=== PATIENT | male | born 1970 | race African-American/Black ===

== ENCOUNTER 2021-03-16 16:10 | Inpatient (IN) | payer MEDICAID ==
[~2021-03-16] VITALS: Ht 170.2 cm; Wt 120.6 kg
[~2021-03-16 16:10] MED LIST: AMOX1TAB15 PO; CLIN300C3 PO; INSLAN SQ; INSU100V SQ; LURA40TA2 PO; METF-845 PO; MULT-723 PO; VANC1IV IV
[2021-03-16] MEDS ORDERED: FUROSEMIDE 40 MG/4 ML VIAL IVP ONE (17:45)
[2021-03-16 18:06] LABS: BASOPHILS % (AUTO) 1.2 % (0.0-2.0); HEMATOCRIT 30.3 % (41-53); HEMOGLOBIN 9.6 g/dL (13.5-17.5); LYMPHOCYTES # (AUTO) 0.8 K/uL (1.0-4.8); MEAN CORPUSCULAR HEMOGLOBIN 27.6 pg (26.0-34.0); MEAN CORPUSCULAR HGB CONC 31.8 G/dL (31.0-37.0); MEAN CORPUSCULAR VOLUME 87 fL (80-100); MONOCYTES # (AUTO) 0.8 K/uL (0.1-1.0); MONOCYTES % (AUTO) 8.4 % (2.0-9.0); NEUTROPHILS # (AUTO) 7.3 K/uL (1.8-7.7); NEUTROPHILS % (AUTO) 80.4 % (40.0-70.0); PLATELET COUNT (AUTO) 357 K/uL (150-450); RED BLOOD CELL COUNT(AUTO) 3.49 MIL/uL (4.50-5.90); RED CELL DISTRIBUTION WIDTH 19.9 % (11.5-14.5)
[2021-03-16] MEDS ORDERED: NITROGLYCERIN 2% (1 GM=INCH) PACKET TP ONE (18:15)
[2021-03-16] MEDS ORDERED: MORPHINE SULFATE 4 MG/ML SYRINGE IVP ONE (18:15)
[2021-03-16] MEDS ORDERED: ASPIRIN 81 MG CHEWABLE TABLET PO ONE (18:15)
[2021-03-16] MEDS ORDERED: ONDANSETRON HCL 4 MG/2 ML VIAL IVP ONE (18:15)
[2021-03-16 18:36] LABS: CALCIUM, TOTAL 7.9 mg/dL (8.8-10.5); CREATININE 1.58 mg/dL (0.60-1.30); POTASSIUM 5.3 mmol/L (3.5-5.1)
[2021-03-16 18:50] LABS: ALBUMIN 1.6 g/dL (3.4-5.0); BILIRUBIN,TOTAL 0.5 mg/dL (0.1-1.0); TOTAL PROTEIN, SERUM 6.6 g/dL (6.4-8.2)
[2021-03-16] MEDS ORDERED: 0.9% SODIUM CHLORIDE 10 ML SYRINGE IVP PRN (19:45)
[2021-03-16 20:40] LABS: COVID AG,FIA SOURCE NASOPHARYNGEAL
[2021-03-16 20:45] LABS: FREE T4 (FREE THYROXINE) 1.09 ng/dL (0.76-1.46); THYROID STIMULATING HORMONE 2.63 uIU/mL (0.36-3.74)
[2021-03-16 22:56] LABS: GLUCOSE,POINT OF CARE 141 MG/DL (70-110)
[2021-03-16 23:29] VITALS: BP 128/80
[2021-03-17] MEDS ORDERED: INFLUENZA VIRUS VACCINE QVS 2021-22 (6MO+)/PF 60 MCG/0.5 ML SYRINGE IM. ONE (00:45)
[2021-03-17 04:08] VITALS: BP 125/75
[2021-03-17 06:38] LABS: GLUCOMETER DEV NAME(LOC) 5N.3; GLUCOSE,POINT OF CARE 198 MG/DL (70-110)
[2021-03-17 07:18] LABS: BASOPHILS % (AUTO) 1.6 % (0.0-2.0); EOSINOPHILS % (AUTO) 0.3 % (1.0-6.0); HEMATOCRIT 33.1 % (41-53); HEMOGLOBIN 10.4 g/dL (13.5-17.5); LYMPHOCYTES # (AUTO) 0.7 K/uL (1.0-4.8); LYMPHOCYTES % (AUTO) 8.6 % (22.0-44.0); MEAN CORPUSCULAR HEMOGLOBIN 27.8 pg (26.0-34.0); MEAN CORPUSCULAR HGB CONC 31.5 G/dL (31.0-37.0); MEAN CORPUSCULAR VOLUME 88 fL (80-100); MONOCYTES # (AUTO) 0.6 K/uL (0.1-1.0); MONOCYTES % (AUTO) 7.5 % (2.0-9.0); NEUTROPHILS # (AUTO) 6.7 K/uL (1.8-7.7); PLATELET COUNT (AUTO) 382 K/uL (150-450); RED BLOOD CELL COUNT(AUTO) 3.75 MIL/uL (4.50-5.90); RED CELL DISTRIBUTION WIDTH 19.8 % (11.5-14.5)
[2021-03-17 07:56] LABS: ALBUMIN 1.7 g/dL (3.4-5.0); BILIRUBIN,TOTAL 0.5 mg/dL (0.1-1.0); CALCIUM, TOTAL 7.9 mg/dL (8.8-10.5); CREATININE 1.79 mg/dL (0.60-1.30); TOTAL PROTEIN, SERUM 7.4 g/dL (6.4-8.2)
[2021-03-17 08:01] VITALS: BP 147/91
[2021-03-17 08:03] LABS: POTASSIUM 6.2 mmol/L (3.5-5.1)
[2021-03-17] MEDS ORDERED: DEXTROSE 50%-WATER 25 GM/50 ML SYRINGE IVP ONE ×2 (08:15→19:45)
[2021-03-17] MEDS ORDERED: SODIUM POLYSTYRENE SULFONATE 15 GM/60 ML SUSPENSION BOTTLE PO ONE ×2 (08:15→19:45)
[2021-03-17] MEDS ORDERED: INSULIN REGULAR, HUMAN 100 UNITS/ML IVP ONE ×2 (08:15→19:45)
[2021-03-17] MEDS ORDERED: ZOLPIDEM TARTRATE 5 MG TABLET PO PRN (09:30)
[2021-03-17] MEDS ORDERED: MAGNESIUM HYDROXIDE SUSPENSION 30 ML UDCUP PO PRN (09:30)
[2021-03-17] MEDS ORDERED: ACETAMINOPHEN 325 MG TABLET PO PRN (09:30)
[2021-03-17] MEDS ORDERED: ONDANSETRON HCL 4 MG/2 ML VIAL IVP PRN (09:30)
[2021-03-17] MEDS ORDERED: BISACODYL 10 MG RECTAL RECTAL SUPPOSITORY PR PRN (09:30)
[2021-03-17] MEDS ORDERED: IPRATROPIUM BROMIDE 0.5 MG/2.5 ML NEB SOLUTION NEB PRN (09:30)
[2021-03-17] MEDS ORDERED: ALBUTEROL SULFATE 2.5 MG/0.5 ML NEB SOLUTION NEB PRN (09:30)
[2021-03-17 11:33] VITALS: BP 159/113
[2021-03-17] MEDS: HEPARIN SODIUM,PORCINE 5,000 UNITS/ML VIAL SQ SCH ×2 (15:07→23:48)
[2021-03-17 15:32] VITALS: BP 154/84
[2021-03-17 19:55] VITALS: BP 146/89
[2021-03-17] MEDS: DOCUSATE SODIUM 100 MG CAPSULE PO SCH (20:27)
[2021-03-17] MEDS: INSULIN GLARGINE,HUM.REC.ANLOG 100 UNITS/ML SQ SCH (20:35)
[2021-03-17 23:46] VITALS: BP 155/94
[2021-03-18 01:46] LABS: GLUCOMETER DEV NAME(LOC) 5N.1C; GLUCOSE,POINT OF CARE 140 MG/DL (70-110)
[2021-03-18 03:56] VITALS: BP 152/93
[2021-03-18 07:25] VITALS: BP 162/109
[2021-03-18 07:56] LABS: GLUCOMETER DEV NAME(LOC) 5N.1C; GLUCOSE,POINT OF CARE 77 MG/DL (70-110)
[2021-03-18] MEDS: HEPARIN SODIUM,PORCINE 5,000 UNITS/ML VIAL SQ SCH ×2 (08:00→15:02)
[2021-03-18] MEDS: LURASIDONE HCL 40 MG TABLET PO SCH (08:00)
[2021-03-18] MEDS: DOCUSATE SODIUM 100 MG CAPSULE PO SCH ×2 (08:06→20:06)
[2021-03-18] MEDS: MULTIVITAMINS WITH IRON TABLET PO SCH (08:14)
[2021-03-18] MEDS: INSULIN GLARGINE,HUM.REC.ANLOG 100 UNITS/ML SQ SCH ×2 (08:51→20:06)
[2021-03-18] MEDS: FUROSEMIDE 40 MG/4 ML VIAL IVP SCH ×2 (09:13→20:06)
[2021-03-18 11:04] VITALS: BP 161/110
[2021-03-18] MEDS: AmLODIPine BESYLATE 5 MG TABLET PO SCH (11:04)
[2021-03-18] MEDS ORDERED: DEXTROSE 50%-WATER 25 GM/50 ML SYRINGE IVP PRN (11:15)
[2021-03-18] MEDS: ASPIRIN 81 MG CHEWABLE TABLET PO SCH (12:09)
[2021-03-18 13:37] LABS: APPEARANCE,URINE CLEAR (CLEAR); BILIRUBIN,URINE NEGATIVE (NEGATIVE); GLUCOSE, URINE (UA) NEGATIVE (NEGATIVE); KETONES,URINE NEGATIVE (NEGATIVE); LEUKOCYTE ESTERASE ,URINE NEGATIVE (NEGATIVE); NITRATE,URINE NEGATIVE (NEGATIVE); PROTEIN,URINE SEE CONFIRM (NEGATIVE); UROBILINOGEN,URINE 0.2 mg/dL (<=1.0)
[2021-03-18 13:45] LABS: AMPHET/METH SCREEN,URINE NEGATIVE (NEGATIVE); BARBITURATE SCREEN, URINE NEGATIVE (NEGATIVE); BENZODIAZEPINES SCREEN,URINE NEGATIVE (NEGATIVE); CANNABINOID SCREEN,URINE NEGATIVE (NEGATIVE); COCAINE SCREEN,URINE NEGATIVE (NEGATIVE); METHADONE SCREEN, URINE NEGATIVE (NEGATIVE); OPIATE SCREEN,URINE NEGATIVE (NEGATIVE); PROTEIN,URINE RANDOM 98 mg/dL (0-11.9)
[2021-03-18 13:48] LABS: PHENCYCLIDINE SCREEN,URINE NEGATIVE (NEGATIVE)
[2021-03-18 13:53] LABS: BACTERIA,URINE None Seen /HPF (None Seen); OCCULT BLOOD,URINE SMALL (NEGATIVE); WBC,URINE None Seen /HPF (0-5)
[2021-03-18 13:54] LABS: SULFOSALICYLIC ACID,URINE Trace (Negative)
[2021-03-18 14:05] LABS: CREATININE,URINE RANDOM < 5.0 mg/dL (30.0-125.0)
[2021-03-18 15:38] VITALS: BP 157/97
[2021-03-18 18:01] LABS: GLUCOMETER DEV NAME(LOC) 5N.1C; GLUCOSE,POINT OF CARE 84 MG/DL (70-110)
[2021-03-18 18:01] LABS: GLUCOMETER DEV NAME(LOC) 5N.1C; GLUCOSE,POINT OF CARE 92 MG/DL (70-110)
[2021-03-18 19:56] VITALS: BP 163/90
[2021-03-18 23:45] VITALS: BP 160/107
[2021-03-19 04:58] VITALS: BP 150/87
[2021-03-19] MEDS: INSULIN LISPRO 100 UNITS/ML SQ PRN ×2 (05:34→11:49)
[2021-03-19 06:42] LABS: GLUCOMETER DEV NAME(LOC) 5S.1; GLUCOSE,POINT OF CARE 129 MG/DL (70-110)
[2021-03-19 07:44] VITALS: BP 145/78
[2021-03-19] MEDS: HEPARIN SODIUM,PORCINE 5,000 UNITS/ML VIAL SQ SCH ×5 (08:00→23:24)
[2021-03-19] MEDS: MULTIVITAMINS WITH IRON TABLET PO SCH (08:12)
[2021-03-19] MEDS: LURASIDONE HCL 40 MG TABLET PO SCH (08:12)
[2021-03-19] MEDS: AmLODIPine BESYLATE 5 MG TABLET PO SCH (08:12)
[2021-03-19] MEDS: ASPIRIN 81 MG CHEWABLE TABLET PO SCH (08:12)
[2021-03-19] MEDS: DOCUSATE SODIUM 100 MG CAPSULE PO SCH ×2 (08:13→21:00)
[2021-03-19] MEDS: FUROSEMIDE 40 MG/4 ML VIAL IVP SCH ×4 (08:13→21:40)
[2021-03-19] MEDS: INSULIN GLARGINE,HUM.REC.ANLOG 100 UNITS/ML SQ SCH ×2 (08:16→21:00)
[2021-03-19 11:42] VITALS: BP 156/90
[2021-03-19 15:03] LABS: APPEARANCE,URINE CLEAR (CLEAR); BILIRUBIN,URINE NEGATIVE (NEGATIVE); GLUCOSE, URINE (UA) 100 mg/dL (NEGATIVE); KETONES,URINE NEGATIVE (NEGATIVE); LEUKOCYTE ESTERASE ,URINE NEGATIVE (NEGATIVE); NITRATE,URINE NEGATIVE (NEGATIVE); PROTEIN,URINE SEE CONFIRM (NEGATIVE)
[2021-03-19 15:08] LABS: CREATININE,URINE RANDOM 96.7 mg/dL (30.0-125.0)
[2021-03-19 15:16] LABS: BACTERIA,URINE None Seen /HPF (None Seen); OCCULT BLOOD,URINE SMALL (NEGATIVE); SQUAMOUS EPITHELIAL CELL,UR Few /LPF (None Seen); WBC,URINE None Seen /HPF (0-5)
[2021-03-19 15:42] VITALS: BP 154/84
[2021-03-19 16:56] LABS: BASOPHILS % (AUTO) 0.7 % (0.0-2.0); EOSINOPHILS % (AUTO) 1.8 % (1.0-6.0); HEMATOCRIT 31.2 % (41-53); HEMOGLOBIN 9.7 g/dL (13.5-17.5); LYMPHOCYTES % (AUTO) 11.3 % (22.0-44.0); MEAN CORPUSCULAR VOLUME 87 fL (80-100); MONOCYTES # (AUTO) 0.7 K/uL (0.1-1.0); MONOCYTES % (AUTO) 8.2 % (2.0-9.0); NEUTROPHILS # (AUTO) 6.6 K/uL (1.8-7.7); PLATELET COUNT (AUTO) 380 K/uL (150-450); RED BLOOD CELL COUNT(AUTO) 3.58 MIL/uL (4.50-5.90); RED CELL DISTRIBUTION WIDTH 19.4 % (11.5-14.5)
[2021-03-19 17:16] LABS: GLUCOMETER DEV NAME(LOC) 5S.1; GLUCOSE,POINT OF CARE 172 MG/DL (70-110)
[2021-03-19 17:35] LABS: HEMOGLOBIN A1C 9.1 % (3.8-5.6)
[2021-03-19 17:37] LABS: ALBUMIN 1.4 g/dL (3.4-5.0); BILIRUBIN,TOTAL 0.2 mg/dL (0.1-1.0); CALCIUM, TOTAL 7.6 mg/dL (8.8-10.5); CHOL/HDL RATIO 1.8 (4.2-7.3); CREATININE 1.62 mg/dL (0.60-1.30); MAGNESIUM 1.9 mg/dL (1.80-2.40); PHOSPHORUS 3.4 mg/dL (2.5-4.9); TOTAL PROTEIN, SERUM 6.5 g/dL (6.4-8.2)
[2021-03-19 17:46] LABS: GLUCOMETER DEV NAME(LOC) 5N.1C; GLUCOSE,POINT OF CARE 115 MG/DL (70-110)
[2021-03-19 19:30] VITALS: BP 134/86
[2021-03-19] MEDS ORDERED: FUROSEMIDE 40 MG TABLET PO SCH (21:00)
[2021-03-19] MEDS: MORPHINE SULFATE 2 MG/ML SYRINGE IVP PRN (21:42)
[2021-03-19 23:31] VITALS: BP 162/89
[2021-03-20 04:12] LABS: GLUCOMETER DEV NAME(LOC) 5S.1; GLUCOSE,POINT OF CARE 128 MG/DL (70-110)
[2021-03-20 04:28] VITALS: BP 119/85
[2021-03-20] MEDS: INSULIN LISPRO 100 UNITS/ML SQ PRN ×2 (05:42→18:28)
[2021-03-20 06:37] LABS: GLUCOMETER DEV NAME(LOC) 5N.3; GLUCOSE,POINT OF CARE 194 MG/DL (70-110)
[2021-03-20 07:09] VITALS: BP 132/82
[2021-03-20 09:19] LABS: BASOPHILS % (AUTO) 0.4 % (0.0-2.0); EOSINOPHILS % (AUTO) 1.8 % (1.0-6.0); HEMATOCRIT 29.7 % (41-53); HEMOGLOBIN 9.6 g/dL (13.5-17.5); LYMPHOCYTES # (AUTO) 0.8 K/uL (1.0-4.8); MEAN CORPUSCULAR HEMOGLOBIN 27.9 pg (26.0-34.0); MEAN CORPUSCULAR HGB CONC 32.2 G/dL (31.0-37.0); MEAN CORPUSCULAR VOLUME 87 fL (80-100); MONOCYTES # (AUTO) 0.6 K/uL (0.1-1.0); MONOCYTES % (AUTO) 7.7 % (2.0-9.0); NEUTROPHILS # (AUTO) 6.7 K/uL (1.8-7.7); NEUTROPHILS % (AUTO) 80.1 % (40.0-70.0); PLATELET COUNT (AUTO) 375 K/uL (150-450); RED BLOOD CELL COUNT(AUTO) 3.43 MIL/uL (4.50-5.90); RED CELL DISTRIBUTION WIDTH 19.3 % (11.5-14.5)
[2021-03-20 09:30] LABS: CALCIUM, TOTAL 7.7 mg/dL (8.8-10.5); CREATININE 1.54 mg/dL (0.60-1.30); MAGNESIUM 1.7 mg/dL (1.80-2.40); PHOSPHORUS 3.4 mg/dL (2.5-4.9); POTASSIUM 4.9 mmol/L (3.5-5.1)
[2021-03-20] MEDS: ASPIRIN 81 MG CHEWABLE TABLET PO SCH (09:46)
[2021-03-20] MEDS: FUROSEMIDE 40 MG/4 ML VIAL IVP SCH ×3 (09:46→21:07)
[2021-03-20] MEDS: LURASIDONE HCL 40 MG TABLET PO SCH (09:46)
[2021-03-20] MEDS: MULTIVITAMINS WITH IRON TABLET PO SCH (09:46)
[2021-03-20] MEDS: DOCUSATE SODIUM 100 MG CAPSULE PO SCH ×2 (09:46→21:00)
[2021-03-20] MEDS: HEPARIN SODIUM,PORCINE 5,000 UNITS/ML VIAL SQ SCH ×3 (09:47→18:25)
[2021-03-20] MEDS: CARVEDILOL 3.125 MG TABLET PO SCH ×2 (09:52→21:06)
[2021-03-20] MEDS: ISOSORB DINIT/HYDRALAZINE HCL 20-37.5 MG TABLET PO SCH ×3 (09:52→21:06)
[2021-03-20] MEDS: MORPHINE SULFATE 2 MG/ML SYRINGE IVP PRN ×2 (09:59→21:13)
[2021-03-20] MEDS: INSULIN GLARGINE,HUM.REC.ANLOG 100 UNITS/ML SQ SCH ×2 (10:01→21:08)
[2021-03-20 11:13] VITALS: BP 141/88
[2021-03-20 14:01] LABS: GLUCOMETER DEV NAME(LOC) 5S.1; GLUCOSE,POINT OF CARE 164 MG/DL (70-110)
[2021-03-20 15:44] VITALS: BP 122/79
[2021-03-20] MEDS ORDERED: SODIUM CL IRRIG SOLN BOTTLE 250 ML IRRIG ONE (15:50)
[2021-03-20 19:53] VITALS: BP 136/71
[2021-03-20 23:42] VITALS: BP 138/75
[2021-03-21 00:11] LABS: GLUCOMETER DEV NAME(LOC) 5S.1; GLUCOSE,POINT OF CARE 168 MG/DL (70-110)
[2021-03-21 00:13] LABS: GLUCOMETER DEV NAME(LOC) 5N.1C; GLUCOSE,POINT OF CARE 109 MG/DL (70-110)
[2021-03-21] MEDS: MORPHINE SULFATE 2 MG/ML SYRINGE IVP PRN ×3 (03:12→20:04)
[2021-03-21 04:16] VITALS: BP 143/84
[2021-03-21 06:27] LABS: GLUCOMETER DEV NAME(LOC) 5N.3; GLUCOSE,POINT OF CARE 161 MG/DL (70-110)
[2021-03-21 07:03] LABS: GLUCOMETER DEV NAME(LOC) 5S.1; GLUCOSE,POINT OF CARE 83 MG/DL (70-110)
[2021-03-21 07:38] LABS: BASOPHILS % (AUTO) 0.4 % (0.0-2.0); EOSINOPHILS % (AUTO) 2.2 % (1.0-6.0); HEMATOCRIT 28.6 % (41-53); HEMOGLOBIN 9.3 g/dL (13.5-17.5); LYMPHOCYTES # (AUTO) 0.9 K/uL (1.0-4.8); LYMPHOCYTES % (AUTO) 9.6 % (22.0-44.0); MEAN CORPUSCULAR HEMOGLOBIN 28.1 pg (26.0-34.0); MEAN CORPUSCULAR HGB CONC 32.5 G/dL (31.0-37.0); MEAN CORPUSCULAR VOLUME 87 fL (80-100); MONOCYTES # (AUTO) 0.8 K/uL (0.1-1.0); MONOCYTES % (AUTO) 8.9 % (2.0-9.0); NEUTROPHILS # (AUTO) 7.2 K/uL (1.8-7.7); NEUTROPHILS % (AUTO) 78.9 % (40.0-70.0); PLATELET COUNT (AUTO) 370 K/uL (150-450); RED BLOOD CELL COUNT(AUTO) 3.31 MIL/uL (4.50-5.90); RED CELL DISTRIBUTION WIDTH 19.4 % (11.5-14.5)
[2021-03-21 08:06] LABS: ALBUMIN 1.5 g/dL (3.4-5.0); BILIRUBIN,TOTAL 0.3 mg/dL (0.1-1.0); CALCIUM, TOTAL 7.7 mg/dL (8.8-10.5); CREATININE 1.6 mg/dL (0.60-1.30); MAGNESIUM 1.8 mg/dL (1.80-2.40); PHOSPHORUS 3.5 mg/dL (2.5-4.9); TOTAL PROTEIN, SERUM 6.7 g/dL (6.4-8.2)
[2021-03-21 08:26] VITALS: BP 109/80
[2021-03-21] MEDS: ISOSORB DINIT/HYDRALAZINE HCL 20-37.5 MG TABLET PO SCH ×3 (09:41→19:55)
[2021-03-21] MEDS: LURASIDONE HCL 40 MG TABLET PO SCH (09:42)
[2021-03-21] MEDS: ASPIRIN 81 MG CHEWABLE TABLET PO SCH (09:42)
[2021-03-21] MEDS: DOCUSATE SODIUM 100 MG CAPSULE PO SCH ×2 (09:43→19:55)
[2021-03-21] MEDS: CARVEDILOL 3.125 MG TABLET PO SCH ×2 (09:43→19:57)
[2021-03-21] MEDS: HEPARIN SODIUM,PORCINE 5,000 UNITS/ML VIAL SQ SCH ×4 (09:44→23:46)
[2021-03-21] MEDS: FUROSEMIDE 40 MG/4 ML VIAL IVP SCH ×3 (09:44→19:55)
[2021-03-21] MEDS: MULTIVITAMINS WITH IRON TABLET PO SCH (09:44)
[2021-03-21] MEDS: INSULIN GLARGINE,HUM.REC.ANLOG 100 UNITS/ML SQ SCH ×2 (09:48→21:12)
[2021-03-21 09:51] VITALS: BP 164/89
[2021-03-21] MEDS: INSULIN LISPRO 100 UNITS/ML SQ PRN (12:45)
[2021-03-21 15:41] VITALS: BP 151/87
[2021-03-21 17:03] LABS: GLUCOMETER DEV NAME(LOC) 5S.1; GLUCOSE,POINT OF CARE 150 MG/DL (70-110)
[2021-03-21 18:16] LABS: GLUCOMETER DEV NAME(LOC) 5N.1C; GLUCOSE,POINT OF CARE 173 MG/DL (70-110)
[2021-03-21] MEDS: HYDROCODONE/ACETAMINOPHEN 5-325 MG TABLET PO PRN ×2 (19:56→22:23)
[2021-03-21 20:00] VITALS: BP 146/84
[2021-03-21 21:53] LABS: GLUCOMETER DEV NAME(LOC) 5S.1; GLUCOSE,POINT OF CARE 98 MG/DL (70-110)
[2021-03-21 21:54] LABS: GLUCOMETER DEV NAME(LOC) 5N.3; GLUCOSE,POINT OF CARE 115 MG/DL (70-110)
[2021-03-22 00:36] VITALS: BP 111/66
[2021-03-22] MEDS: MORPHINE SULFATE 2 MG/ML SYRINGE IVP PRN (01:08)
[2021-03-22] MEDS: HYDROCODONE/ACETAMINOPHEN 5-325 MG TABLET PO PRN (02:28)
[2021-03-22] MEDS ORDERED: NALOXONE HCL 1 MG/ML 2 ML SYG IVP ONE ×2 (03:45→05:00)
[2021-03-22] MEDS ORDERED: NALOXONE HCL 0.4 MG/ML VIAL IVP ONE (03:50)
[2021-03-22] MEDS ORDERED: NALOXONE HCL 0.4 MG/ML VIAL ONE (04:43)
[2021-03-22 05:46] LABS: BASOPHILS % (AUTO) 0.5 % (0.0-2.0); EOSINOPHILS % (AUTO) 2.5 % (1.0-6.0); HEMOGLOBIN 9.5 g/dL (13.5-17.5); LYMPHOCYTES % (AUTO) 12.6 % (22.0-44.0); MEAN CORPUSCULAR HGB CONC 31.7 G/dL (31.0-37.0); MEAN CORPUSCULAR VOLUME 88 fL (80-100); MONOCYTES % (AUTO) 12.6 % (2.0-9.0); NEUTROPHILS # (AUTO) 5.9 K/uL (1.8-7.7); NEUTROPHILS % (AUTO) 71.8 % (40.0-70.0); PLATELET COUNT (AUTO) 393 K/uL (150-450); RED BLOOD CELL COUNT(AUTO) 3.41 MIL/uL (4.50-5.90); RED CELL DISTRIBUTION WIDTH 19.9 % (11.5-14.5)
[2021-03-22 06:44] LABS: % IRON SATURATION 8.2 % (30-44)
[2021-03-22 06:58] VITALS: BP 141/77
[2021-03-22 07:13] LABS: ALBUMIN 1.7 g/dL (3.4-5.0); BILIRUBIN,TOTAL 0.3 mg/dL (0.1-1.0); CALCIUM, TOTAL 8.1 mg/dL (8.8-10.5); CREATININE 1.91 mg/dL (0.60-1.30); MAGNESIUM 1.9 mg/dL (1.80-2.40); PHOSPHORUS 4.3 mg/dL (2.5-4.9); POTASSIUM 5.1 mmol/L (3.5-5.1); TOTAL PROTEIN, SERUM 7.2 g/dL (6.4-8.2)
[2021-03-22] MEDS: HEPARIN SODIUM,PORCINE 5,000 UNITS/ML VIAL SQ SCH ×2 (08:00→16:00)
[2021-03-22] MEDS: ISOSORB DINIT/HYDRALAZINE HCL 20-37.5 MG TABLET PO SCH ×3 (09:00→21:24)
[2021-03-22] MEDS: INSULIN GLARGINE,HUM.REC.ANLOG 100 UNITS/ML SQ SCH ×2 (09:00→21:28)
[2021-03-22] MEDS: DOCUSATE SODIUM 100 MG CAPSULE PO SCH ×2 (09:00→21:24)
[2021-03-22 10:47] VITALS: BP 129/76
[2021-03-22 12:03] LABS: GLUCOMETER DEV NAME(LOC) 5S.1; GLUCOSE,POINT OF CARE 96 MG/DL (70-110)
[2021-03-22] MEDS: ASPIRIN 81 MG CHEWABLE TABLET PO SCH (12:22)
[2021-03-22] MEDS: MULTIVITAMINS WITH IRON TABLET PO SCH (12:22)
[2021-03-22] MEDS: LURASIDONE HCL 40 MG TABLET PO SCH (12:22)
[2021-03-22] MEDS: FUROSEMIDE 40 MG/4 ML VIAL IVP SCH ×3 (12:23→21:24)
[2021-03-22] MEDS: CARVEDILOL 3.125 MG TABLET PO SCH ×2 (12:23→21:24)
[2021-03-22] MEDS: ALBUMIN HUMAN 25%-25GM/100ML 100 ML IV SCH ×2 (12:24→12:45)
[2021-03-22] MEDS: INSULIN LISPRO 100 UNITS/ML SQ PRN (12:26)
[2021-03-22 15:07] VITALS: BP 142/87
[2021-03-22] MEDS ORDERED: NALOXONE HCL 1 MG/ML 2 ML SYG IM ONE (17:44)
[2021-03-22 19:42] VITALS: BP 154/89
[2021-03-22 21:20] LABS: GLUCOMETER DEV NAME(LOC) 5N.3; GLUCOSE,POINT OF CARE 178 MG/DL (70-110)
[2021-03-22 21:26] LABS: GLUCOMETER DEV NAME(LOC) 5N.1C; GLUCOSE,POINT OF CARE 107 MG/DL (70-110)
[2021-03-22 21:26] LABS: GLUCOMETER DEV NAME(LOC) 5N.1C; GLUCOSE,POINT OF CARE 159 MG/DL (70-110)
[2021-03-23 00:08] VITALS: BP 124/83
[2021-03-23] MEDS: HEPARIN SODIUM,PORCINE 5,000 UNITS/ML VIAL SQ SCH ×2 (00:42→08:15)
[2021-03-23] MEDS: ALBUMIN HUMAN 25%-25GM/100ML 100 ML IV SCH ×3 (03:42→11:44)
[2021-03-23 04:12] VITALS: BP 128/68
[2021-03-23 05:45] LABS: GLUCOMETER DEV NAME(LOC) 5N.1C; GLUCOSE,POINT OF CARE 76 MG/DL (70-110)
[2021-03-23 07:35] LABS: BASOPHILS % (AUTO) 0.5 % (0.0-2.0); EOSINOPHILS % (AUTO) 1.6 % (1.0-6.0); HEMATOCRIT 25.6 % (41-53); HEMOGLOBIN 8.2 g/dL (13.5-17.5); LYMPHOCYTES # (AUTO) 0.9 K/uL (1.0-4.8); LYMPHOCYTES % (AUTO) 10.6 % (22.0-44.0); MEAN CORPUSCULAR HEMOGLOBIN 27.6 pg (26.0-34.0); MEAN CORPUSCULAR HGB CONC 32.2 G/dL (31.0-37.0); MEAN CORPUSCULAR VOLUME 86 fL (80-100); MONOCYTES # (AUTO) 0.8 K/uL (0.1-1.0); NEUTROPHILS # (AUTO) 6.6 K/uL (1.8-7.7); NEUTROPHILS % (AUTO) 78.3 % (40.0-70.0); PLATELET COUNT (AUTO) 322 K/uL (150-450); RED BLOOD CELL COUNT(AUTO) 2.98 MIL/uL (4.50-5.90); RED CELL DISTRIBUTION WIDTH 19.5 % (11.5-14.5)
[2021-03-23 07:40] VITALS: BP 140/85
[2021-03-23 07:45] LABS: CREATININE 1.95 mg/dL (0.60-1.30)
[2021-03-23 07:46] LABS: MAGNESIUM 1.9 mg/dL (1.80-2.40); PHOSPHORUS 4.4 mg/dL (2.5-4.9)
[2021-03-23] MEDS: LURASIDONE HCL 40 MG TABLET PO SCH (08:14)
[2021-03-23] MEDS: DOCUSATE SODIUM 100 MG CAPSULE PO SCH (08:14)
[2021-03-23] MEDS: ASPIRIN 81 MG CHEWABLE TABLET PO SCH (08:14)
[2021-03-23] MEDS: MULTIVITAMINS WITH IRON TABLET PO SCH (08:14)
[2021-03-23] MEDS: CARVEDILOL 3.125 MG TABLET PO SCH (08:14)
[2021-03-23] MEDS: ISOSORB DINIT/HYDRALAZINE HCL 20-37.5 MG TABLET PO SCH (08:15)
[2021-03-23] MEDS: FUROSEMIDE 40 MG/4 ML VIAL IVP SCH (08:15)
[2021-03-23] MEDS: INSULIN GLARGINE,HUM.REC.ANLOG 100 UNITS/ML SQ SCH (09:00)
[2021-03-23 12:12] VITALS: BP 117/73
[2021-03-23] MEDS ORDERED: FURO40 PO (14:27)
[2021-03-23] MEDS ORDERED: CARV3 PO (14:28)
[2021-03-23] MEDS ORDERED: ISOS1TAB2 PO (14:29)
[2021-03-23 21:13] LABS: GLUCOMETER DEV NAME(LOC) 5S.1; GLUCOSE,POINT OF CARE 129 MG/DL (70-110)
== END 2021-03-23 15:45 | disposition home or self-care (01) | DRG 194 ==
LOC: EMS 16:10 → 5S 20:00
PROVIDERS: ADMIT Hospitalist; ATTEND Hospitalist
PROC: CF1C1ZZ Planar Nuclear Medicine Imaging of Hepatobiliary System, All using Technetium 99m (Tc-99m) (ICD-10-PCS; principal; 2021-03-19)
PROC: 05HY33Z Insertion of Infusion Device into Upper Vein, Percutaneous Approach (ICD-10-PCS; 2021-03-19)
DX: I13.0 Hypertensive heart and chronic kidney disease with heart failure and stage 1 through stage 4 chronic kidney disease, or unspecified chronic kidney disease (principal); E43 Unspecified severe protein-calorie malnutrition; E11.22 Type 2 diabetes mellitus with diabetic chronic kidney disease; L97.419 Non-pressure chronic ulcer of right heel and midfoot with unspecified severity; E11.40 Type 2 diabetes mellitus with diabetic neuropathy, unspecified; D50.9 Iron deficiency anemia, unspecified; E11.621 Type 2 diabetes mellitus with foot ulcer; E87.5 Hyperkalemia; F17.290 Nicotine dependence, other tobacco product, uncomplicated; N50.89 Other specified disorders of the male genital organs; J44.9 Chronic obstructive pulmonary disease, unspecified; I50.23 Acute on chronic systolic (congestive) heart failure; Z20.822 Contact with and (suspected) exposure to COVID-19; R19.00 Intra-abdominal and pelvic swelling, mass and lump, unspecified site; K76.9 Liver disease, unspecified; L97.429 Non-pressure chronic ulcer of left heel and midfoot with unspecified severity; F99 Mental disorder, not otherwise specified; N18.32 Chronic kidney disease, stage 3b; I25.5 Ischemic cardiomyopathy; Z79.4 Long term (current) use of insulin; Z79.84 Long term (current) use of oral hypoglycemic drugs; Z59.00 Homelessness unspecified; Z89.429 Acquired absence of other toe(s), unspecified side; Z91.14 Patient's other noncompliance with medication regimen; Z91.19 Patient's noncompliance with other medical treatment and regimen; Z91.013 Allergy to seafood; Z79.899 Other long term (current) drug therapy
CPT/HCPCS: 36245; 36569; 71045; 76700; 76770; 76937; 78226; 80048; 80053; 80061; 80307; 81001; 81002; 82043; 82550; 82570; 82728; 82962; 83036; 83540; 83550; 83690; 83735; 83880; 84100; 84132; 84145; 84156; 84439; 84443; 84484; 85025; 87040; 93005; 93306; 99285; A9537; J1644; J1815; J1940; J2270; J2310; J2405; P9046; 36415-L1; 36415-TC